=== PATIENT | female | born 1955 | race Caucasian/White ===

== ENCOUNTER → 2018-11-08 | Outpatient (CLI) | payer OTHER ==
[2018-11-10 15:06] LABS: HPV 16 Negative (Negative); HPV 18 Negative (Negative); HPV OTHER HR TYPES Negative (Negative)
== END | disposition home or self-care (01) ==
LOC: LAB EV 18:17 → LAB 18:17 → LAB SHORT 18:17
PROVIDERS: Nurse Practitioner Women's Health
DX: Z12.4 Encounter for screening for malignant neoplasm of cervix (principal)
CPT/HCPCS: 87624; G0123

== ENCOUNTER → 2018-11-17 | Outpatient (CLI) | payer OTHER | END | disposition home or self-care (01) | LOC: LAB SHORT 07:31 → LAB 07:31 | DX: Z01.818 Encounter for other preprocedural examination (principal); N84.0 Polyp of corpus uteri; N95.0 Postmenopausal bleeding; R93.89 Abnormal findings on diagnostic imaging of other specified body structures | CPT/HCPCS: 88305 ==

== ENCOUNTER 2018-11-29 11:30 | Day surgery (SDC) | payer OTHER ==
[~2018-11-29] VITALS: Ht 157.5 cm; Wt 139.8 kg
[2018-11-29] MEDS ORDERED: CALCITRATE200 MG (12:21)
[2018-11-29] MEDS ORDERED: FIBER GUMMIES2 GM PO (12:22)
[2018-11-29] MEDS ORDERED: Geritol Comple1 EACH (12:22)
--- NOTE | 2018-11-29 14:57 | NUR ---
11/29/18 1455 Albaro Mayer LATE ENTRY: 1414 PT STATES SHE HAS NO POST OP HOME PAIN MEDICATIONS. PT STATES SHE HAS A "HIGH" PAIN TOLERANCE. PT STATES SHE IS FINE WITH IBU/ TYLENOL PAIN MANAGEMENT. PT INSTRUCTED TO CALL DR. DEJESUS OFFICE IF PAIN BECOMES INTOLERABLE.
== END 2018-11-29 14:40 | disposition home or self-care (01) ==
LOC: ORSCSDS 11:30
PROVIDERS: Obstetrics & Gynecology Gynecology
PROC: 0UB98ZX Excision of Uterus, Via Natural or Artificial Opening Endoscopic, Diagnostic (ICD-10-PCS; principal; 2018-11-29 13:00)
PROC: 0UDB8ZX Extraction of Endometrium, Via Natural or Artificial Opening Endoscopic, Diagnostic (ICD-10-PCS; principal; 2018-11-29 13:00)
DX: N95.0 Postmenopausal bleeding (principal); R93.89 Abnormal findings on diagnostic imaging of other specified body structures; N84.0 Polyp of corpus uteri; F17.210 Nicotine dependence, cigarettes, uncomplicated
CPT/HCPCS: 88305; J0330; J0461; J0690; J1100; J1885; J2250; J2405; J2704; J3010; J7120